=== PATIENT | female | born 1970 | race Caucasian/White ===

== ENCOUNTER 2018-02-14 19:56 | Emergency (ER) | payer SELFPAY ==
[~2018-02-14] VITALS: Ht 157.5 cm; Wt 113.6 kg
[2018-02-14] MEDS ORDERED: SODIUM CHLORIDE 0.9% 1,000 ML IV ONE (20:05)
[2018-02-14] MEDS ORDERED: TRAZ-219 PO (20:06)
[2018-02-14] MEDS ORDERED: ESTR-95 PO (20:06)
[2018-02-14] MEDS ORDERED: SULF500T60 PO (20:06)
[2018-02-14] MEDS ORDERED: OMEP20 PO (20:06)
[2018-02-14] MEDS ORDERED: TOPI25 PO (20:06)
[2018-02-14] MEDS ORDERED: LISI1TAB9 PO (20:06)
[2018-02-14] MEDS ORDERED: GABA-529 PO (20:06)
[2018-02-14] MEDS ORDERED: ESCI10TA PO (20:06)
[2018-02-14] MEDS ORDERED: HYDR200T4 PO (20:06)
[2018-02-14] MEDS ORDERED: LEVO100 PO (20:06)
[2018-02-14] MEDS ORDERED: TRAM50TA4 PO (20:06)
[2018-02-14] MEDS ORDERED: PRED5 PO (20:19)
[2018-02-14 20:39] LABS: BASOPHILS % (AUTO) 1.4 % (0.0-2.0); EOSINOPHILS % (AUTO) 2.7 % (1.0-6.0); HEMOGLOBIN 12.7 g/dL (12.0-16.0); LYMPHOCYTES # (AUTO) 2.2 K/uL (1.0-4.8); LYMPHOCYTES % (AUTO) 17.8 % (22.0-44.0); MEAN CORPUSCULAR HEMOGLOBIN 28.8 pg (26.0-34.0); MEAN CORPUSCULAR HGB CONC 33.5 G/dL (31.0-37.0); MEAN CORPUSCULAR VOLUME 86 fL (80-100); MONOCYTES # (AUTO) 1.3 K/uL (0.1-1.0); MONOCYTES % (AUTO) 10.3 % (2.0-9.0); NEUTROPHILS # (AUTO) 8.3 K/uL (1.8-7.7); NEUTROPHILS % (AUTO) 67.8 % (40.0-70.0); PLATELET COUNT (AUTO) 135 K/uL (150-450); RED BLOOD CELL COUNT(AUTO) 4.42 MIL/uL (4.00-5.20); RED CELL DISTRIBUTION WIDTH 15.2 % (11.5-14.5)
[2018-02-14] MEDS ORDERED: ONDANSETRON HCL 4 MG/2 ML VIAL IVP ONE ×2 (20:45→21:15)
[2018-02-14 20:50] LABS: CALCIUM, TOTAL 8.5 mg/dL (8.8-10.5); CREATININE 1.11 mg/dL (0.60-1.30); POTASSIUM 3.3 mmol/L (3.5-5.1)
[2018-02-14 21:04] LABS: ALBUMIN 3.1 g/dL (3.4-5.0); BILIRUBIN,TOTAL 0.4 mg/dL (0.1-1.0); THYROID STIMULATING HORMONE 3.87 uIU/mL (0.36-3.74)
[2018-02-14] MEDS ORDERED: MORPHINE SULFATE 4 MG/ML SYRINGE IVP ONE (21:15)
[2018-02-14] MEDS ORDERED: PB/HYOSCY/ATR/SCOP/LIDO/MAALOX 55 ML BOTTLE PO ONE (21:15)
[2018-02-14] MEDS ORDERED: IOVERSOL 320 MG/ML 100 ML VIAL ONE (22:39)
[2018-02-14] MEDS ORDERED: SODIUM CHLORIDE 0.9% 100 ML ONE (22:39)
[2018-02-15 00:07] VITALS: BP 134/99
[2018-02-15] MEDS ORDERED: KETOROLAC TROMETHAMINE 30 MG/ML VIAL IVP ONE (00:15)
[2018-02-15 00:40] LABS: APPEARANCE,URINE CLEAR (CLEAR); BILIRUBIN,URINE NEGATIVE (NEGATIVE); GLUCOSE, URINE (UA) NEGATIVE (NEGATIVE); KETONES,URINE NEGATIVE (NEGATIVE); LEUKOCYTE ESTERASE ,URINE NEGATIVE (NEGATIVE); NITRATE,URINE NEGATIVE (NEGATIVE); OCCULT BLOOD,URINE NEGATIVE (NEGATIVE); PH,URINE 6.5 (5.0-8.0); PROTEIN,URINE NEGATIVE (NEGATIVE); UROBILINOGEN,URINE 0.2 mg/dL (<=1.0)
[2018-02-15 00:57] LABS: AMPHET/METH SCREEN,URINE NEGATIVE (NEGATIVE); BARBITURATE SCREEN, URINE NEGATIVE (NEGATIVE); BENZODIAZEPINES SCREEN,URINE NEGATIVE (NEGATIVE); CANNABINOID SCREEN,URINE NEGATIVE (NEGATIVE); COCAINE SCREEN,URINE NEGATIVE (NEGATIVE); METHADONE SCREEN, URINE NEGATIVE (NEGATIVE); OPIATE SCREEN,URINE POSITIVE (NEGATIVE)
[2018-02-15 01:05] LABS: PHENCYCLIDINE SCREEN,URINE NEGATIVE (NEGATIVE)
== END 2018-02-15 00:43 | disposition home or self-care (01) ==
LOC: EMS 19:58
DX: R10.13 Epigastric pain (principal); R19.7 Diarrhea, unspecified; T78.1XXA Other adverse food reactions, not elsewhere classified, initial encounter; G89.29 Other chronic pain; K21.9 Gastro-esophageal reflux disease without esophagitis; X58.XXXA Exposure to other specified factors, initial encounter
CPT/HCPCS: 74177; 84443; 93005; 96374; 96375; 99285